=== PATIENT | female | born 1970 | race Caucasian/White ===

== ENCOUNTER → 2019-08-06 | Outpatient (CLI) | payer OTHER ==
--- NOTE | 2019-08-06 12:31 | RADIOLOGY REPORT (SQ) ---
EXAM DESCRIPTION: U/S ABDOMEN LIMITED W/O DOP IMAGES COMPLETED DATE/TIME: 08/06/2019 12:09 pm REASON FOR STUDY: R10.11 RIGHT UPPER QUADRANT PAIN R10.11 RIGHT UPPER QUADRANT PAIN COMPARISON: None. TECHNIQUE: Dynamic and static grayscale images acquired of the abdomen and recorded on PACS. Additio nal selected color Doppler and spectral images recorded. LIMITATIONS: None. FINDINGS: PANCREAS: No masses. Visualized pancreatic duct normal caliber. LIVER: No masses. Echotexture normal. LIVER VASCULATURE: Normal directional flow of the main portal vein and hepatic veins. GALLBLADDER: Dilated gallbladder measuring up to 5.0 cm transversely. There is a 4.4 cm stone within the gallbladder neck. Additional sludge within the gallbladder lumen. Gallbladder wall measures 3 mm. No pericholecystic fluid. ULTRASOUND-DETECTED NAJERA'S SIGN: Positive. INTRAHEPATIC DUCTS AND COMMON DUCT: CBD is dilated measuring a 8 mm. No intrahepatic ductal dilation . INFERIOR VENA CAVA: Normal flow. AORTA: No aneurysm. RIGHT KIDNEY: Normal size measuring 11.5cm. Normal echogenicity. No solid or suspicious masses. No h ydronephrosis. No calcifications. PERITONEAL AND RIGHT PLEURAL SPACE: No ascites or effusions. OTHER: No other significant findings. IMPRESSION: 1. Sludge and Cholelithiasis with a 4.4 cm stone within the gallbladder neck, dilated g allbladder and reported positive sonographic Najera's sign suggestive of acute cholecystitis. Recomm end surgical evaluation. 2. Dilated CBD measuring up to 8 mm without obstructing lesion identified. Choledocholithiasis is n ot excluded. MRCP or ERCP could be considered for further evaluation. TECHNICAL DOCUMENTATION: JOB ID: [id number] 2010 [email or web address]- All Rights Reserved Reading location - IP/workstation name: [email or web address]
== END ==
LOC: RAD 11:45
PROVIDERS: ATTEND Nurse Practitioner Family
DX: K80.20 Calculus of gallbladder without cholecystitis without obstruction (principal)
CPT/HCPCS: 76705